=== PATIENT | male | born 1960 | race Two or more races ===

== ENCOUNTER → 2019-02-14 | Day surgery (SDC) | payer OTHER ==
[~2019-02-14] VITALS: Ht 165.1 cm; Wt 83.9 kg
[~2019-02-14] MED LIST: LIDOCAINE VISCOUS 2% 15ML UD MT ONE; SODIUM CHLORIDE LOCK 10 ML ONE; diphenhdrAMINE HCL 50 MG/1 ML VL ONE
[2019-02-14 09:45] LABS: Basophils # (auto) 0 uL; Eosinophils # (auto) 0.1 uL; Eosinophils % (auto) 2.8 % (0.0-7.0); Hematocrit 51.4 % (41.0-53.0); Hemoglobin 17.5 g/dL (13.5-17.5); Lymphocytes # (auto) 1.8 uL; Lymphocytes % (auto) 36.7 % (10.0-50.0); Mean Corpuscular Hemoglobin 30.5 pg (28.0-32.0); Mean Corpuscular Hgb Conc. 34.1 g/dL (32.0-36.0); Mean Corpuscular Volume 89.5 fL (80.0-100.0); Monocytes # (auto) 0.5 uL; Monocytes % (auto) 11.3 % (0.0-12.0); Neutrophils # (auto) 2.3 uL; Neutrophils % (auto) 48.2 % (37.0-80.0); Nucleated Red Blood Cells % 0.2 %; Platelet Count (auto) 166 10^3/uL (140-450); Red Blood Cells 5.74 10^6/uL (4.5-5.90); Red Cell Distribution Width 13.5 % (11.8-14.3); White Blood Cell 4.8 10^3/uL (4.4-10.8)
[2019-02-14 10:02] LABS: INR 0.96 (0.9-1.15); Partial Thromboplastin Time 28.2 sec (23.64-32.05)
[2019-02-14] MEDS: fentaNYL CITRATE 100 MCG/2 ML VL ONE ×2 (12:13→13:17)
[2019-02-14] MEDS: MIDAZOLAM HCL 5 MG/ML-1ML VIAL ONE ×2 (12:13→12:17)
[2019-02-14 13:00] VITALS: BP 104/71
== END | disposition home or self-care (01) ==
LOC: GI 08:55
PROVIDERS: ATTEND Internal Medicine Gastroenterology
DX: R12 Heartburn (principal); K21.9 Gastro-esophageal reflux disease without esophagitis; M19.90 Unspecified osteoarthritis, unspecified site; Z79.899 Other long term (current) drug therapy
CPT/HCPCS: 36415; 43235; 85025; 85610; 85730; J1200; J2250; J3010; J7030; 99152